=== PATIENT | male | born 1970 | race Caucasian/White ===

== ENCOUNTER 2019-05-16 08:03 | Emergency (ER) | payer SELFPAY ==
[~2019-05-16] VITALS: Ht 177.8 cm; Wt 88.5 kg
[~2019-05-16 08:03] MED LIST: AMLODIPINE BESYL5 M1 PO; BAY PO; CLINDAMYCIN HC300 MG PO; COLACE100 MG PO; LAC PO; NOR10T PO; NORCO1 TA2 PO; TOR10 PO; ZOC10 PO; ZYL100 PO
[2019-05-16 08:07] VITALS: Ht 177.8 cm; Wt 88.5 kg
[2019-05-16 13:52] VITALS: BP 169/91
== END 2019-05-16 13:52 | disposition home or self-care (01) ==
LOC: ED 08:03
DX: J18.9 Pneumonia, unspecified organism (principal); R07.89 Other chest pain; I10 Essential (primary) hypertension; Z88.6 Allergy status to analgesic agent
CPT/HCPCS: J0696; J7030; J7512; Q0162